=== PATIENT | male | born 1975 | race Caucasian/White ===

== ENCOUNTER 2021-11-15 00:04 | Inpatient (IN) ==
[2021-11-15] MEDS ORDERED: 0.9 % Sodium Chloride 1,000 ML IV ONE (00:46)
[2021-11-15 01:22] LABS: VBG HCO3 27 mEq/L (21-27); VBG PCO2 41 mmHg (41-51); VBG PH 7.42 pH Units (7.32-7.42); VBG PO2 225 mmHg (25-50)
[2021-11-15 03:53] LABS: Influenza A PCR Negative (Negative); Influenza B PCR Negative (Negative); Resp. Syncytial Virus PCR Negative (Negative)
[2021-11-15 03:57] LABS: SARS-CoV-2 by PCR (In House) Negative (Negative)
[2021-11-15] MEDS ORDERED: haloperidoL 5 MG TABLET PO PRN (04:43)
[2021-11-15] MEDS ORDERED: Haloperidol Lactate 5 MG/ML VIAL IM PRN (04:43)
[2021-11-15] MEDS ORDERED: traZODone 50 MG TABLET PO PRN (04:43)
[2021-11-15] MEDS ORDERED: *HR* LORazepam 2 MG/ML VIAL IM PRN (04:43)
[2021-11-15] MEDS ORDERED: *HR* LORazepam 1 MG TABLET PO PRN (04:43)
[2021-11-15] MEDS ORDERED: Ibuprofen 400 MG TABLET PO PRN (04:43)
[2021-11-15] MEDS ORDERED: Dextrose Gel 15 GM/37.5 ML TUBE PO PRN ×2 (04:50)
[2021-11-15] MEDS ORDERED: D5% in Water 1,000 ML IVC PRN (04:50)
[2021-11-15] MEDS: hydrOXYzine pamoate 25 MG CAPSULE PO PRN (05:21)
[2021-11-15] MEDS: Acetaminophen 325 MG TABLET PO PRN (05:21)
[2021-11-15] MEDS ORDERED: Neosporin OINT 1 APPL PACKET TP PRN (08:47)
[2021-11-15] MEDS: *HR* Metformin 500 MG TABLET PO SCH ×2 (09:37→16:47)
[2021-11-15] MEDS: Insulin LISPRO 300 UNITS/3 ML VIAL SUBQ SCH ×4 (09:41→20:49)
[2021-11-16] MEDS: Insulin LISPRO 300 UNITS/3 ML VIAL SUBQ SCH ×4 (08:00→20:16)
[2021-11-16] MEDS: *HR* Metformin 500 MG TABLET PO SCH ×2 (08:00→16:28)
[2021-11-17] MEDS: Insulin LISPRO 300 UNITS/3 ML VIAL SUBQ SCH ×4 (08:15→20:23)
[2021-11-17] MEDS: *HR* Metformin 500 MG TABLET PO SCH ×2 (09:08→17:11)
[2021-11-17] MEDS: hydrOXYzine pamoate 25 MG CAPSULE PO PRN (20:23)
[2021-11-17] MEDS ORDERED: Mag Hydrox/Al Hydrox/Simeth 30 ML UDC PO PRN (20:25)
[2021-11-18] MEDS: *HR* Metformin 500 MG TABLET PO SCH ×2 (08:45→17:35)
[2021-11-18] MEDS: Insulin LISPRO 300 UNITS/3 ML VIAL SUBQ SCH ×4 (08:54→21:03)
[2021-11-19] MEDS: *HR* Metformin 500 MG TABLET PO SCH ×2 (09:22→16:59)
[2021-11-19] MEDS: Insulin LISPRO 300 UNITS/3 ML VIAL SUBQ SCH ×4 (09:23→21:12)
[2021-11-19] MEDS: Acetaminophen 325 MG TABLET PO PRN (21:11)
[2021-11-20] MEDS: Insulin LISPRO 300 UNITS/3 ML VIAL SUBQ SCH ×4 (08:46→20:40)
[2021-11-20] MEDS: *HR* Metformin 500 MG TABLET PO SCH ×2 (09:09→17:01)
[2021-11-20] MEDS: hydrOXYzine pamoate 25 MG CAPSULE PO PRN (20:40)
[2021-11-20] MEDS: Acetaminophen 325 MG TABLET PO PRN (20:40)
[2021-11-21] MEDS: Insulin LISPRO 300 UNITS/3 ML VIAL SUBQ SCH ×2 (08:38→12:15)
[2021-11-21] MEDS: *HR* Metformin 500 MG TABLET PO SCH (08:58)
[2021-11-21 09:26] VITALS: BP 129/88; PULSE 80; TEMP 98.1; O2SAT 96
== END 2021-11-21 14:15 | disposition other institution (70) | DRG 751 ==
LOC: EMEROOARM 00:04 → 1ANU 04:46
PROVIDERS: ADMIT Psychiatry & Neurology Psychiatry; ATTEND Psychiatry & Neurology Psychiatry

== ENCOUNTER 2022-06-18 11:26 | Inpatient (IN) ==
[2022-06-18 12:24] LABS: Basophils # 0.1 K/mcL (0.0-0.2); Basophils % 0.7 %; Eosinophils # 0.2 K/mcL (0.0-0.6); Eosinophils % 2.4 %; Hematocrit 43.3 % (37.5-50.1); Immature Granulocytes % 0.1 % (0-4); Lymphocytes % 24.7 %; Mean Corpuscular HGB Conc 34.6 g/dL (31.6-35.5); Mean Corpuscular Volume 86.6 fL (83.0-100.0); Mean Platelet Volume 10.2 fL (9.4-12.4); Monocytes # 0.8 K/mcL (0.0-1.3); Monocytes % 9.7 %; Neutrophils # 5.1 K/mcL (1.6-8.9); Platelet Count 215 K/mcL (140-400); Red Cell Distribution Width 12.7 % (11.5-14.5); Segmented Neutrophils % 62.4 %; White Blood Count 8.2 K/mcL (4.3-11.1)
[2022-06-18 12:30] LABS: Bilirubin,Urine Negative (Negative); Blood,Urine Negative (Negative); Clarity,Urine Clear (Clear); Color,Urine Yellow (Yellow); Glucose,Urine (UA) Normal (Normal); Ketones,Urine Negative (Negative); Leukocyte Esterase,Urine Negative (Negative); Nitrite,Urine Negative (Negative); PH,Urine 7.5 pH Units (5.0-8.0); Protein,Urine Trace mg/dL (Neg-Trace); Specific Gravity,Urine 1.024 (1.010-1.025); Urobilinogen,Urine Normal (Normal)
[2022-06-18 12:51] LABS: Amphetamine Screen,Urine Negative ng/mL (Cutoff=1000); Barbiturate Screen,Urine Negative ng/mL (Cutoff=200); Benzodiazepines Screen,Urine Negative ng/mL (Cutoff=200); Cannabinoid Screen,Urine Negative ng/mL (Cutoff = 50); Cocaine Screen,Urine Negative ng/mL (Cutoff= 300); Opiate Screen,Urine Negative ng/mL (Cutoff=300); Phencyclidine Screen,Urine Negative ng/mL (Cutoff=25)
[2022-06-18 12:54] LABS: Acetaminophen < 10 mcg/mL (10-20); BUN/Creatinine Ratio 16 (6-26); Blood Urea Nitrogen 15 mg/dL (6-20); Carbon Dioxide 26 mEq/L (23-29); Chloride 102 mEq/L (98-107); Ethanol < 10 mg/dL (Less than 10); Glucose 135 mg/dL (70-105); Osmolality,Calculated 285 (280-300); Potassium 4.6 mEq/L (3.5-5.1); Salicylate < 2.5 mg/dL (15.0-30.0); Sodium 136 mEq/L (136-145)
[2022-06-18 16:31] LABS: Influenza A PCR Negative (Negative); Influenza B PCR Negative (Negative); Resp. Syncytial Virus PCR Negative (Negative)
[2022-06-18 17:17] LABS: SARS-CoV-2 by PCR (In House) Negative (Negative)
[2022-06-18] MEDS ORDERED: Ibuprofen 400 MG TABLET PO PRN (17:47)
[2022-06-18] MEDS ORDERED: haloperidoL 5 MG TABLET PO PRN (17:47)
[2022-06-18] MEDS ORDERED: hydrOXYzine pamoate 25 MG CAPSULE PO PRN (17:47)
[2022-06-18] MEDS ORDERED: traZODone 50 MG TABLET PO PRN (17:47)
[2022-06-18] MEDS ORDERED: Haloperidol Lactate 5 MG/ML VIAL IM PRN (17:47)
[2022-06-18] MEDS ORDERED: *HR* LORazepam 1 MG TABLET PO PRN (17:47)
[2022-06-18] MEDS ORDERED: *HR* LORazepam 2 MG/ML VIAL IM PRN (17:47)
[2022-06-18] MEDS ORDERED: MOM Conc 10 ML UD.LIQ PO PRN (20:28)
[2022-06-18] MEDS ORDERED: Mag Hydrox/Al Hydrox/Simeth 30 ML UDC PO PRN (20:28)
[2022-06-19] MEDS: *HR* Metformin 500 MG TABLET PO SCH ×2 (10:09→17:04)
[2022-06-19] MEDS: (Linagliptin [Tradjenta] 5 MG Tablet) PO SCH (10:10)
[2022-06-19] MEDS ORDERED: BuPROPion XL (24 HR) 150 MG TABLET PO SCH (10:30)
[2022-06-19] MEDS: ARIPiprazole 5 MG TABLET PO SCH (11:48)
[2022-06-20] MEDS: ARIPiprazole 5 MG TABLET PO SCH (08:45)
[2022-06-20] MEDS: *HR* Metformin 500 MG TABLET PO SCH ×2 (08:45→17:02)
[2022-06-20] MEDS: (Linagliptin [Tradjenta] 5 MG Tablet) PO SCH (08:46)
[2022-06-20 09:02] VITALS: O2SAT 96
[2022-06-21] MEDS: (Linagliptin [Tradjenta] 5 MG Tablet) PO SCH (08:20)
[2022-06-21] MEDS: ARIPiprazole 5 MG TABLET PO SCH (08:20)
[2022-06-21] MEDS: *HR* Metformin 500 MG TABLET PO SCH (08:21)
[2022-06-21 09:50] VITALS: BP 143/85; PULSE 79; TEMP 97.5
== END 2022-06-21 10:40 | disposition other institution (70) | DRG 751 ==
LOC: EMEROOARM 11:26 → 1ANU 18:14
PROVIDERS: ADMIT Psychiatry & Neurology Psychiatry; ATTEND Psychiatry & Neurology Psychiatry